=== PATIENT | female | born 2000 ===

== ENCOUNTER 2021-09-16 05:19 | Day surgery (SDC) | payer SELFPAY ==
[~2021-09-16] VITALS: Ht 127 cm; Wt 67.2 kg
--- NOTE | 2021-09-16 05:40 | NUR ---
21 year old patient admitted to [facility] [place] bay [address] via ambualtion and no use of assistive devices. Procedure verified and consent signed. First and last name + verified with the patient. Physical assessment completed. Vitals obtained and IV started. PO medications administered. Patient provided a HCG sample and changed into a clean gown. Non-slip socks are on. Warm blanket provided. Side rails x2. HCG results are negative. Patient denied having any further questions or concerns. Her boyfriend Michael was brought into her room. Her mother is driving from [employer] and is her family/emergency contact, this is documented on the pre-op communication sheet. Call tolbert is within reach.
[2021-09-16] MEDS ORDERED: MINOCYCLIN100 MG/CAP PO (05:43)
[2021-09-16 06:19] VITALS: BP 121/73; PULSE 85; TEMP 99.1
[2021-09-16 08:50] VITALS: BP 121/66; PULSE 73; TEMP 97.5
[2021-09-16 09:05] VITALS: BP 120/66; PULSE 83
--- NOTE | 2021-09-16 09:05 | NUR ---
Patient arrived from the PACU. Report obtained by MINGO Quiles. Patient is alert and oriented x3, drinking water. Mother is present. Vitals obtained. Patient denies pain. Will continue to monitor per intervals. Call tolbert is at bedside.
[2021-09-16 09:20] VITALS: BP 122/70; PULSE 92
--- NOTE | 2021-09-16 09:20 | NUR ---
Patient denies neusea and vomiting. Vitals obtained. Patient requested crackers and is tolerating them well. Side rails x2.
[2021-09-16 09:35] VITALS: BP 121/68; PULSE 88
--- NOTE | 2021-09-16 09:35 | NUR ---
Patient expressed desire to be discharged, however she has not voided yet. Patient stated she would like to try in the next 20 minutes. Vitals obtained. Call tolbert is within reach.
[2021-09-16 10:05] VITALS: BP 121/61; PULSE 76
--- NOTE | 2021-09-16 10:05 | NUR ---
The patients mother assisted her with ambulating to the bathroom. Patient was able to void successfully and changed into her personal clothes.
--- NOTE | 2021-09-16 10:15 | NUR ---
Discharge instructions and edcuational material was reviewed with the patient and her Mother. Both verbalized understanding and the patient signed the related paperwork. The RN answered questions regarding dressing and wound care. The patient and her mother were escorted out to the patient entrence via wheelchair by MINGO Quiles. Her mother has the discharge instructions in hand. The patient was transferred into the care of her Mother, who is present to drive.
== END 2021-09-16 10:25 | disposition home or self-care (01) ==
LOC: SDCO 05:19
DX: L05.92 Pilonidal sinus without abscess (principal); L02.31 Cutaneous abscess of buttock
CPT/HCPCS: J0330; J0690; J1100; J1885; J2250; J2405; J2704; J3010; J7120